=== PATIENT | female | born 2000 | race Caucasian/White ===

== ENCOUNTER 2018-04-15 21:30 | Observation (INO) | payer OTHER ==
[2018-04-15 21:54] VITALS: BP 151/78
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
[2018-04-16] MEDS ORDERED: hydrOXYzine Pamoate 25 MG Cap PO ONE (01:05)
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
== END 2018-04-16 01:26 | disposition home or self-care (01) ==
LOC: MW.ED 21:30 → MW.OB 22:27
PROVIDERS: ADMIT Obstetrics & Gynecology; ATTEND Obstetrics & Gynecology
DX: Z04.1 Encounter for examination and observation following transport accident (principal); O99.513 Diseases of the respiratory system complicating pregnancy, third trimester; J45.909 Unspecified asthma, uncomplicated; Z3A.37 37 weeks gestation of pregnancy
CPT/HCPCS: 59025; 76818; 76818-26; 93005; 99284-25; A9270-GY; G0390

== ENCOUNTER 2018-11-25 00:51 | Emergency (ER) | payer MEDICAID, OTHER ==
[2018-11-25] MEDS ORDERED: Ondansetron 4 MG/2 ML SDV IVPUSH ONE (01:07)
[2018-11-25] MEDS ORDERED: Pantoprazole 40 MG Vial IVPUSH ONE (01:07)
[2018-11-25] MEDS ORDERED: Sodium Chloride 0.9% 1,000 ML IV ONE (01:07)
[2018-11-25] MEDS ORDERED: Sodium Chloride 0.9% 2.5 ML Syringe FLUSH PRN (01:07)
[2018-11-25] MEDS ORDERED: Sodium Chloride 0.9% 10 ML Syringe FLUSH PRN (01:07)
[2018-11-25] MEDS ORDERED: Sodium Chloride 0.9% 20 ML ONE (01:11)
--- NOTE | 2018-11-25 01:11 | EDM.PDOC ---
ED HPI GENERAL MEDICAL PROBLEM - General Chief Complaint: Abdominal Pain Stated Complaint: UPPER ABD PAIN Time Seen by Provider: 11/25/18 00:57 - History of Present Illness INITIAL COMMENTS - FREE TEXT/NARRATIVE: HISTORY AND PHYSICAL: History of present illness: The patient is a 18-year-old female with no abdominal surgical history and no GI history, who has had an endoscopy and gallbladder ultrasound about 5 years ago and was told that she had acid reflux and was treated and is since off medications and presents with onset of epigastric pain that started 2 hours ago. The patient says she is nauseated but not vomiting and feels lightheaded but she has no chest pain or shortness of breath no fevers chills or upper respiratory symptoms. She said she had a normal bowel movement just prior to coming here which was not black or bloody and no diarrhea. She says that foods don't bother her stomach and she doesn't have issues with food intolerance but she did try some [id number] Tums and it did not work so she came here for evaluation. The patient denies but she is not on control and she has no urinary complaints or flank pain. The patient tells me that the pain is localized in the epigastrium and does not go right or left there is no lower abdominal or pelvic tenderness. The patient is currently breast-feeding her child but does have breast home so she can pump and discard for any medications that are given here. She describes the pain as a cramping-like contraction-like feeling that does not let up. She says it is like squeezing. Review of systems: As per history of present illness and below otherwise all systems reviewed and negative. Past medical history: As per history of present illness and as reviewed below otherwise noncontributory. Surgical history: As per history of present illness and as reviewed below otherwise noncontributory. Social history: No reported history of drug or alcohol abuse. Family history: As per history of present illness and as reviewed below otherwise noncontributory. Physical exam: General: Well-developed well-nourished mildly overweight female who is nontoxic and vital signs are noted by me HEENT: Atraumatic, normocephalic, negative for conjunctival pallor or scleral icterus, mucous membranes moist, throat clear, neck supple, nontender, trachea midline. Lungs: Clear to auscultation, breath sounds equal bilaterally, chest nontender. Heart: S1S2, regular rate and rhythm no overt murmurs Abdomen: Soft, nondistended, no sounds are normoactive, there is some mild epigastric tenderness on deep palpation without rebound or guarding but he does not localize right or left and there is no lower abdominal tenderness. Negative for masses or hepatosplenomegaly. Negative for costovertebral tenderness. Pelvis: Stable nontender. Genitourinary: Deferred. Rectal: Deferred. Extremities: Atraumatic, negative for cords or calf pain. Neurovascular unremarkable. Neuro: Awake, alert, oriented. Cranial nerves II through XII unremarkable. Cerebellum unremarkable. Motor and sensory unremarkable throughout. Exam nonfocal. Diagnostics: CBC CMP amylase lipase H. pylori UA UCG EKG Therapeutics: IV fluids Zofran and Protonix GI cocktail I discussed with the patient and family at bedside TESTING that has been done to this point and it is all within normal limits except some mild dehydration with a BUN of 20. I will give the patient a GI cocktail and I have offered her imaging, a CT scan, which she declines at this time. I have talked with her at length about further testing going forward such as possible repeat endoscopy HIDA scan and further care with Dr. Calderón whom she has seen in the past or one of his associates. She states understanding. I will give her prescription for Protonix and Carafate to take for the next 10 days and reevaluate. I will also give her dietary restrictions Impression: Epigastric pain Definitive disposition and diagnosis as appropriate pending reevaluation and review of above. Abdominal Pain Score (Numeric/FACES): 7 - Related Data Allergies Allergy/AdvReac Type Severity Reaction Status Date / Time No Known Allergies Allergy Verified 11/25/18 00:57 Home Meds: Home Meds . [No Known Home Meds] 11/25/18 [History] Past Medical History Respiratory History: Reports: Asthma Gastrointestinal History: Reports: Chronic Constipation Other Gastrointestinal History: occasional heartburn - Infectious Disease History Infectious Disease History: Reports: Chicken Pox - Past Surgical History Head Surgeries/Procedures: Reports: None HEENT Surgical History: Reports: Other (See Below) Other HEENT Surgeries/Procedures: wisdom tooth extraction 03/2017 GI Surgical History: Reports: Colonoscopy, Other (See Below) Other GI Surgeries/Procedures: colonoscopy with endoscopy 11/2015 Social & Family History - Family History Family Medical History: Noncontributory - Tobacco Use Smoking Status *Q: Never Smoker - Caffeine Use Caffeine Use: Reports: None - Recreational Drug Use Recreational Drug Use: No ED ROS GENERAL - Review of Systems Review Of Systems: ROS reveals no pertinent complaints other than HPI. ED EXAM, GENERAL - Physical Exam Exam: See Below (See dictation) Course - Vital Signs Last Recorded V/S: Last Vital Signs Temp 35.9 C 11/25/18 00:58 Pulse 79 11/25/18 00:58 Resp 16 11/25/18 00:58 BP 143/86 H 11/25/18 00:58 Pulse Ox 99 11/25/18 00:58 - Orders/Labs/Meds Orders: Active Orders 24 hr Category Date Time Status EKG Documentation Completion [RC] STAT Care 11/25/18 02:03 Active Sodium Chloride 0.9% [Saline Flush] Med 11/25/18 01:07 Active 10 ml FLUSH ASDIRECTED PRN Sodium Chloride 0.9% [Saline Flush] Med 11/25/18 01:07 Active 2.5 ml FLUSH ASDIRECTED PRN Saline Lock Insert [OM.PC] Stat Oth 11/25/18 01:07 Ordered Medication Orders Sodium Chloride (Saline Flush) 10 ml FLUSH ASDIRECTED PRN PRN Reason: Keep Vein Open Sodium Chloride (Saline Flush) 2.5 ml FLUSH ASDIRECTED PRN PRN Reason: Keep Vein Open Labs: Laboratory Tests 11/25/18 11/25/18 11/25/18 Range/Units 01:00 01:00 01:15 WBC 9.49 (4.0-11.0) K/uL RBC 5.19 (4.30-5.90) M/uL Hgb 14.8 (12.0-16.0) g/dL Hct 43.7 (36.0-46.0) % MCV 84.2 (80.0-98.0) fL MCH 28.5 (27.0-32.0) pg MCHC 33.9 (31.0-37.0) g/dL RDW Std Deviation 38.3 (28.0-62.0) fl RDW Coeff of Latasha 13 (11.0-15.0) % Plt Count 192 (150-400) K/uL MPV 12.70 H (7.40-12.00) fL Neut % (Auto) 64.4 (48.0-80.0) % Lymph % (Auto) 28.2 (16.0-40.0) % Jerome % (Auto) 6.4 (0.0-15.0) % Eos % (Auto) 0.8 (0.0-7.0) % Baso % (Auto) 0.2 (0.0-1.5) % Neut # (Auto) 6.1 H (1.4-5.7) K/uL Lymph # (Auto) 2.7 H (0.6-2.4) K/uL Jerome # (Auto) 0.6 (0.0-0.8) K/uL Eos # (Auto) 0.1 (0.0-0.7) K/uL Baso # (Auto) 0.0 (0.0-0.1) K/uL Nucleated RBC % 0.0 /100WBC Nucleated RBCs # 0 K/uL Sodium (136-145) mmol/L Potassium (3.5-5.1) mmol/L Chloride (98-107) mmol/L Carbon Dioxide (21.0-32.0) mmol/L BUN (7.0-18.0) mg/dL Creatinine (0.6-1.0) mg/dL Est Cr Clr Drug Dosing mL/min Estimated GFR (MDRD) ml/min Glucose (74-106) mg/dL Calcium (8.5-10.1) mg/dL Total Bilirubin (0.2-1.0) mg/dL AST (15-37) IU/L ALT (14-63) IU/L Alkaline Phosphatase (46-116) U/L Total Protein (6.4-8.2) g/dL Albumin (3.4-5.0) g/dL Globulin (2.6-4.0) g/dL Albumin/Globulin Ratio (0.9-1.6) Amylase (25-115) U/L Lipase (73-393) U/L Urine Color YELLOW Urine Appearance CLEAR Urine pH 6.5 (5.0-8.0) Ur Specific [place] 1.020 (1.001-1.035) Urine Protein NEGATIVE (NEGATIVE) mg/dL Urine Glucose (UA) NEGATIVE (NEGATIVE) mg/dL Urine Ketones TRACE H (NEGATIVE) mg/dL Urine Occult Blood NEGATIVE (NEGATIVE) Urine Nitrite NEGATIVE (NEGATIVE) Urine Bilirubin NEGATIVE (NEGATIVE) Urine Urobilinogen 0.2 (<2.0) EU/dL Ur Leukocyte Esterase NEGATIVE (NEGATIVE) Urine HCG, Qual NEGATIVE (NEGATIVE) H. pylori IgG Antibody (NEG) 11/25/18 11/25/18 Range/Units 01:15 01:15 WBC (4.0-11.0) K/uL RBC (4.30-5.90) M/uL Hgb (12.0-16.0) g/dL Hct (36.0-46.0) % MCV (80.0-98.0) fL MCH (27.0-32.0) pg MCHC (31.0-37.0) g/dL RDW Std Deviation (28.0-62.0) fl RDW Coeff of Latasha (11.0-15.0) % Plt Count (150-400) K/uL MPV (7.40-12.00) fL Neut % (Auto) (48.0-80.0) % Lymph % (Auto) (16.0-40.0) % Jerome % (Auto) (0.0-15.0) % Eos % (Auto) (0.0-7.0) % Baso % (Auto) (0.0-1.5) % Neut # (Auto) (1.4-5.7) K/uL Lymph # (Auto) (0.6-2.4) K/uL Jerome # (Auto) (0.0-0.8) K/uL Eos # (Auto) (0.0-0.7) K/uL Baso # (Auto) (0.0-0.1) K/uL Nucleated RBC % /100WBC Nucleated RBCs # K/uL Sodium 143 (136-145) mmol/L Potassium 3.8 (3.5-5.1) mmol/L Chloride 101 (98-107) mmol/L Carbon Dioxide 27.6 (21.0-32.0) mmol/L BUN 21 H (7.0-18.0) mg/dL Creatinine 0.9 (0.6-1.0) mg/dL Est Cr Clr Drug Dosing 86.10 mL/min Estimated GFR (MDRD) > 60.0 ml/min Glucose 123 H (74-106) mg/dL Calcium 9.3 (8.5-10.1) mg/dL Total Bilirubin 0.3 (0.2-1.0) mg/dL AST 19 (15-37) IU/L ALT 20 (14-63) IU/L Alkaline Phosphatase 149 H (46-116) U/L Total Protein 7.8 (6.4-8.2) g/dL Albumin 4.4 (3.4-5.0) g/dL Globulin 3.4 (2.6-4.0) g/dL Albumin/Globulin Ratio 1.3 (0.9-1.6) Amylase 53 (25-115) U/L Lipase 186 (73-393) U/L Urine Color Urine Appearance Urine pH (5.0-8.0) Ur Specific [place] (1.001-1.035) Urine Protein (NEGATIVE) mg/dL Urine Glucose (UA) (NEGATIVE) mg/dL Urine Ketones (NEGATIVE) mg/dL Urine Occult Blood (NEGATIVE) Urine Nitrite (NEGATIVE) Urine Bilirubin (NEGATIVE) Urine Urobilinogen (<2.0) EU/dL Ur Leukocyte Esterase (NEGATIVE) Urine HCG, Qual (NEGATIVE) H. pylori IgG Antibody NEGATIVE (NEG) Meds: Medications Generic Name Dose Route Start Last Admin Trade Name Ry PRN Reason Stop Dose Admin Sodium Chloride 10 ml 11/25/18 01:07 Saline Flush FLUSH ASDIRECTED PRN Keep Vein Open Sodium Chloride 2.5 ml 11/25/18 01:07 Saline Flush FLUSH ASDIRECTED PRN Keep Vein Open Discontinued Medications Generic Name Dose Route Start Last Admin Trade Name Ry PRN Reason Stop Dose Admin Al Hydroxide/Mg Hydroxide 15 0 ml 11/25/18 02:01 11/25/18 02:07 ml/ Metoclopramide HCl 5 mg/ PO 11/25/18 02:02 25 each Lidocaine HCl 5 ml ONETIME ONE Administration Sodium Chloride 1,000 mls @ 999 mls/hr 11/25/18 01:07 11/25/18 01:20 Normal Saline IV 11/25/18 02:07 999 mls/hr STAT ONE Administration Sodium Chloride Confirm 11/25/18 01:11 11/25/18 01:20 Normal Saline Administered 11/25/18 01:12 20 mls/hr Dose Administration 20 mls @ as directed .ROUTE .STK-MED ONE Ondansetron HCl 4 mg 11/25/18 01:07 11/25/18 01:20 Zofran IVPUSH 11/25/18 01:08 4 mg ONETIME ONE Administration Pantoprazole Sodium 80 mg 11/25/18 01:07 11/25/18 01:23 Protonix Iv IVPUSH 11/25/18 01:08 80 mg .BOLUS ONE Administration Sodium Chloride 20 ml 11/25/18 01:32 11/25/18 01:33 Normal Saline FLUSH 11/25/18 01:33 Not Given NOW STA Departure - Departure Time of Disposition: 02:16 Disposition: Home, Self-Care 01 Condition: Good Clinical Impression: Epigastric abdominal pain - Discharge Information Referrals: PCP,None [Primary Care Provider] - Forms: ED Department Discharge Additional Instructions: The following information is given to patients seen in the emergency department who are being discharged to home. This information is to outline your options for follow-up care. We provide all patients seen in our emergency department with a follow-up referral. The need for follow-up, as well as the timing and circumstances, are variable depending upon the specifics of your emergency department visit. If you don't have a primary care physician on staff, we will provide you with a referral. We always advise you to contact your personal physician following an emergency department visit to inform them of the circumstance of the visit and for follow-up with them and/or the need for any referrals to a consulting specialist. The emergency department will also refer you to a specialist when appropriate. This referral assures that you have the opportunity for followup care with a specialist. All of these measure are taken in an effort to provide you with optimal care, which includes your followup. Under all circumstances we always encourage you to contact your private physician who remains a resource for coordinating your care. When calling for followup care, please make the office aware that this follow-up is from your recent emergency room visit. If for any reason you are refused follow-up, please contact the [facility] emergency department at and ask to speak to the emergency department charge nurse. [facility] [address] [place] [phone] Please connect with the clinic and schedule follow-up as we discussed for further testing and care of this problem. Take medications as prescribed and try to avoid caffeinated products spicy foods and eat a low-fat diet keeping in mind that any fat may trigger discomfort including cheeses of a and other sources of good fat. Push hydration and return to ER as needed and as discussed - My Orders Last 24 Hours: My Active Orders 11/25/18 01:07 Sodium Chloride 0.9% [Saline Flush] 10 ml FLUSH ASDIRECTED PRN Sodium Chloride 0.9% [Saline Flush] 2.5 ml FLUSH ASDIRECTED PRN Saline Lock Insert [OM.PC] Stat 11/25/18 02:03 EKG Documentation Completion [RC] STAT - Assessment/Plan Last 24 Hours: My Active Orders 11/25/18 01:07 Sodium Chloride 0.9% [Saline Flush] 10 ml FLUSH ASDIRECTED PRN Sodium Chloride 0.9% [Saline Flush] 2.5 ml FLUSH ASDIRECTED PRN Saline Lock Insert [OM.PC] Stat 11/25/18 02:03 EKG Documentation Completion [RC] STAT
[2018-11-25] MEDS ORDERED: Sodium Chloride 0.9% 20 ML SDV FLUSH STA (01:32)
[2018-11-25 01:42] LABS: CHLORIDE,CL 101 mmol/L (98-107); SODIUM,NA 143 mmol/L (136-145)
[2018-11-25] MEDS ORDERED: Alum Hydrox/Mag Hydrox/Simeth 15 ML, Metoclopramide 5 MG, Lidocaine 2% 5 ML PO ONE ×3 (02:01)
[2018-11-25 02:32] VITALS: BP 126/76
== END 2018-11-25 02:25 | disposition home or self-care (01) ==
LOC: MW.ED 00:51
DX: R10.13 Epigastric pain (principal)
CPT/HCPCS: 80053; 81003; 81025; 82150; 83690; 85025; 86677; 93005; 96361; 96374; 96375; 99284; A9270; C9113; J2405; J7040

== ENCOUNTER 2018-11-25 03:37 | Emergency (ER) | payer OTHER ==
[2018-11-25 03:46] VITALS: BP 138/75
[2018-11-25] MEDS ORDERED: Ondansetron 4 MG/2 ML SDV IVPUSH ONE (03:49)
[2018-11-25] MEDS ORDERED: Sodium Chloride 0.9% 1,000 ML IV ONE (03:49)
[2018-11-25] MEDS ORDERED: Morphine 2 MG/ML Syringe IVPUSH ONE (03:49)
--- NOTE | 2018-11-25 03:53 | EDM.PDOC ---
ED HPI GENERAL MEDICAL PROBLEM - General Chief Complaint: Abdominal Pain Stated Complaint: ABD PAIN AND VOMITING Time Seen by Provider: 11/25/18 03:46 - History of Present Illness INITIAL COMMENTS - FREE TEXT/NARRATIVE: HISTORY AND PHYSICAL: History of present illness: The patient is a 18-year-old female who I just saw here in the emergency department and was discharged home about an hour and a half ago and represented with worsening of her pain. On her initial presentation she had 2 hours of epigastric pain that felt like a squeezing cramping like sensation without radiation and was associated with nausea but no vomiting or diarrhea. She has no significant GI or surgical history except for acid reflux that she was diagnosed with back about 5 years ago for which she was treated and taken off medications. On my initial evaluation she had blood work performed which all of which was negative and she was offered a CT scan and she declined at that time. She was given Zofran Protonix for GI cocktail and IV fluids. Upon discharge she was given Protonix for home as well as omeprazole and Zofran and it was recommended that she follow-up with our surgery clinic where she has established relationship for possible EGD and further gallbladder testing. She was comfortable with this care plan and went home and now represented saying that the pain is worsened and now it is still in the epigastric area but now more in the right upper quadrant and she has vomited 2 times. She says the vomitus is food and clear but is not black or bloody and there is no bile. She says the pain is intensified and now it is moving to her back. She has no shortness of breath no chest pain no fevers or flank pain. Review of systems: As per history of present illness and below otherwise all systems reviewed and negative. Past medical history: As per history of present illness and as reviewed below otherwise noncontributory. Surgical history: As per history of present illness and as reviewed below otherwise noncontributory. Social history: No reported history of drug or alcohol abuse. Family history: As per history of present illness and as reviewed below otherwise noncontributory. Physical exam: General: Well-developed well-nourished mildly overweight female who is nontoxic and looks more comfortable than her previous ED visit. Vital signs are noted by me HEENT: Atraumatic, normocephalic, pupils reactive, negative for conjunctival pallor or scleral icterus, mucous membranes moist, throat clear, neck supple, nontender, trachea midline. Lungs: Clear to auscultation, breath sounds equal bilaterally, chest nontender. Heart: S1S2, regular rate and rhythm no overt murmurs. Abdomen: Soft, nondistended, mild to moderate tenderness in the epigastrium and right upper quadrant without rebound or guarding and bowel sounds are slightly hypoactive Negative for masses or hepatosplenomegaly. Negative for costovertebral tenderness. Pelvis: Stable nontender. Genitourinary: Deferred. Rectal: Deferred. Extremities: Atraumatic, full range of motion without defects or deficits. Neurovascular unremarkable. Neuro: Awake, alert, oriented. Cranial nerves II through XII unremarkable. Cerebellum unremarkable. Motor and sensory unremarkable throughout. Exam nonfocal. Diagnostics: Labs from earlier were reviewed by me and repeat CBC and CMP was REordered to identify any acute changes , lactate, as well as CT scan of the abdomen and pelvis Therapeutics: IV placement IV fluids morphine Reglan Benadryl Zofran Ophiem 7.5 Patient on her prior ED visit had already received Protonix Patient has returned from CT and I discussed with her the lab tests. We are currently waiting the CT scan results. She says that her pain has gone from a 9 to a 2/10 and her nausea is improved but it is not completely gone. I will give her some Reglan Benadryl and then reevaluate. Discussed CT scan results with the patient which indicate cholelithiasis without signs of cholecystitis. The patient did present in a very colic fashion on the second ER visit. She now admits to me that in her BLT sandwich today she did have avocado along with the trimble. I've advised her on eating a low-fat diet and connecting with our surgery clinic next week to schedule cholecystectomy. I will give her one Ophiem here and a prescription for home as she would like to prescription at her local pharmacy rather than [facility]. Impression: Epigastric/right upper quadrant pain, cholelithiasis with biliary colic Definitive disposition and diagnosis as appropriate pending reevaluation and review of above. Upper Abdomen Pain Score (Numeric/FACES): 9 - Related Data Allergies Allergy/AdvReac Type Severity Reaction Status Date / Time No Known Allergies Allergy Verified 11/25/18 03:45 Home Meds: Home Meds . [No Known Home Meds] 11/25/18 [History] Past Medical History - Past Health History Medical/Surgical History: Denies Medical/Surgical History Respiratory History: Reports: Asthma Gastrointestinal History: Reports: Chronic Constipation Other Gastrointestinal History: occasional heartburn - Infectious Disease History Infectious Disease History: Reports: Chicken Pox - Past Surgical History Head Surgeries/Procedures: Reports: None HEENT Surgical History: Reports: Other (See Below) Other HEENT Surgeries/Procedures: wisdom tooth extraction 03/2017 GI Surgical History: Reports: Colonoscopy, Other (See Below) Other GI Surgeries/Procedures: colonoscopy with endoscopy 11/2015 Social & Family History - Family History Family Medical History: Noncontributory - Tobacco Use Smoking Status *Q: Never Smoker Second Hand Smoke Exposure: No - Caffeine Use Caffeine Use: Reports: None - Recreational Drug Use Recreational Drug Use: No ED ROS GENERAL - Review of Systems Review Of Systems: ROS reveals no pertinent complaints other than HPI. ED EXAM, GENERAL - Physical Exam Exam: See Below (See dictation) Course - Vital Signs Last Recorded V/S: Last Vital Signs Temp 35.9 C 11/25/18 03:39 Pulse 77 11/25/18 03:39 Resp 18 11/25/18 03:39 BP 138/75 11/25/18 03:39 Pulse Ox 97 11/25/18 03:39 - Orders/Labs/Meds Orders: Active Orders 24 hr Category Date Time Status Abdomen Pelvis w Cont [CT] Stat Exams 11/25/18 03:49 Taken Sodium Chloride 0.9% [Normal Saline] 1,000 ml Med 11/25/18 03:49 Active IV STAT Medication Orders Sodium Chloride (Normal Saline) 1,000 mls @ 999 mls/hr IV STAT ONE Stop: 11/25/18 04:49 Last Admin: 11/25/18 04:00 Dose: 999 mls/hr Labs: Laboratory Tests 11/25/18 11/25/18 11/25/18 Range/Units 03:50 03:50 03:50 WBC 9.66 (4.0-11.0) K/uL RBC 4.99 (4.30-5.90) M/uL Hgb 14.3 (12.0-16.0) g/dL Hct 42.2 (36.0-46.0) % MCV 84.6 (80.0-98.0) fL MCH 28.7 (27.0-32.0) pg MCHC 33.9 (31.0-37.0) g/dL RDW Std Deviation 38.5 (28.0-62.0) fl RDW Coeff of Latasha 13 (11.0-15.0) % Plt Count 162 (150-400) K/uL MPV 12.70 H (7.40-12.00) fL Neut % (Auto) 64.8 (48.0-80.0) % Lymph % (Auto) 29.1 (16.0-40.0) % [place] % (Auto) 5.8 (0.0-15.0) % Eos % (Auto) 0.2 (0.0-7.0) % Baso % (Auto) 0.1 (0.0-1.5) % Neut # (Auto) 6.3 H (1.4-5.7) K/uL Lymph # (Auto) 2.8 H (0.6-2.4) K/uL Dim[place] # (Auto) 0.6 (0.0-0.8) K/uL Eos # (Auto) 0.0 (0.0-0.7) K/uL Baso # (Auto) 0.0 (0.0-0.1) K/uL Nucleated RBC % 0.0 /100WBC Nucleated RBCs # 0 K/uL Lactate 1.8 (0.20-2.00) mmol/L Sodium 145 (136-145) mmol/L Potassium 4.3 (3.5-5.1) mmol/L Chloride 107 (98-107) mmol/L Carbon Dioxide 26.2 (21.0-32.0) mmol/L BUN 19 H (7.0-18.0) mg/dL Creatinine 0.9 (0.6-1.0) mg/dL Est Cr Clr Drug Dosing 86.10 mL/min Estimated GFR (MDRD) > 60.0 ml/min Glucose 114 H (74-106) mg/dL Calcium 9.5 (8.5-10.1) mg/dL Total Bilirubin 0.4 (0.2-1.0) mg/dL AST 136 H (15-37) IU/L ALT 67 H (14-63) IU/L Alkaline Phosphatase 139 H (46-116) U/L Total Protein 7.4 (6.4-8.2) g/dL Albumin 4.2 (3.4-5.0) g/dL Globulin 3.2 (2.6-4.0) g/dL Albumin/Globulin Ratio 1.3 (0.9-1.6) Meds: Medications Generic Name Dose Route Start Last Admin Trade Name Freq PRN Reason Stop Dose Admin Sodium Chloride 1,000 mls @ 999 mls/hr 11/25/18 03:49 11/25/18 04:00 Normal Saline IV 11/25/18 04:49 999 mls/hr STAT ONE Administration Discontinued Medications Generic Name Dose Route Start Last Admin Trade Name Freq PRN Reason Stop Dose Admin Diphenhydramine HCl 25 mg 11/25/18 04:27 11/25/18 04:32 Benadryl IVPUSH 11/25/18 04:28 25 mg ONETIME ONE Administration Iopamidol 100 ml 11/25/18 03:58 11/25/18 04:13 Isovue-370 (76%) IVPUSH 11/25/18 03:59 100 ml ONETIME ONE Administration Metoclopramide HCl 10 mg 11/25/18 04:27 11/25/18 04:32 Reglan IV 11/25/18 04:28 10 mg ONETIME ONE Administration Morphine Sulfate 4 mg 11/25/18 03:49 11/25/18 04:00 Morphine IVPUSH 11/25/18 03:50 4 mg ONETIME ONE Administration Ondansetron HCl 4 mg 11/25/18 03:49 11/25/18 04:00 Zofran IVPUSH 11/25/18 03:50 4 mg ONETIME ONE Administration Departure - Departure Time of Disposition: 04:44 Disposition: Home, Self-Care 01 Condition: Good Clinical Impression: Biliary colic Cholelithiasis Qualifiers: Cholelithiasis location: gallbladder Cholecystitis presence: without cholecystitis Biliary obstruction: without biliary obstruction Qualified Code(s) : K80.20 - Calculus of gallbladder without cholecystitis without obstruction - Discharge Information Referrals: PCP,None [Primary Care Provider] - Forms: ED Department Discharge Additional Instructions: The following information is given to patients seen in the emergency department who are being discharged to home. This information is to outline your options for follow-up care. We provide all patients seen in our emergency department with a follow-up referral. The need for follow-up, as well as the timing and circumstances, are variable depending upon the specifics of your emergency department visit. If you don't have a primary care physician on staff, we will provide you with a referral. We always advise you to contact your personal physician following an emergency department visit to inform them of the circumstance of the visit and for follow-up with them and/or the need for any referrals to a consulting specialist. The emergency department will also refer you to a specialist when appropriate. This referral assures that you have the opportunity for followup care with a specialist. All of these measure are taken in an effort to provide you with optimal care, which includes your followup. Under all circumstances we always encourage you to contact your private physician who remains a resource for coordinating your care. When calling for followup care, please make the office aware that this follow-up is from your recent emergency room visit. If for any reason you are refused follow-up, please contact the emergency department at and ask to speak to the emergency department charge nurse. [facility] Professional [facility] [address] [place] [address] Fill your prescription for the Zofran that you have given earlier and you may also told the prescription for the Protonix and the omeprazole as you choose. You have been given a prescription for Ophiem which is a narcotic pain medication and use this only when the pain gets severe. You may use over-the- counter Tylenol and ibuprofen otherwise for pain management. Please eat a low- fat diet as we discussed avoiding even good fats as this will trigger your pain. Also reduce and/or eliminate caffeine. Push hydration and schedule follow- up in the surgery clinic using resources given to above discussed laparoscopic cholecystectomy and other treatment plans for your symptoms. - My Orders Last 24 Hours: My Active Orders 11/25/18 03:49 Abdomen Pelvis w Cont [CT] Stat Sodium Chloride 0.9% [Normal Saline] 1,000 ml IV STAT - Assessment/Plan Last 24 Hours: My Active Orders 11/25/18 03:49 Abdomen Pelvis w Cont [CT] Stat Sodium Chloride 0.9% [Normal Saline] 1,000 ml IV STAT
[2018-11-25] MEDS ORDERED: Iopamidol 755 Mg/ML 100 ML Bottle IVPUSH ONE (03:58)
[2018-11-25 04:17] LABS: CHLORIDE,CL 107 mmol/L (98-107); SODIUM,NA 145 mmol/L (136-145)
[2018-11-25] MEDS ORDERED: diphenhydrAMINE 50 MG/ML SDV IVPUSH ONE (04:27)
[2018-11-25] MEDS ORDERED: Metoclopramide 10 MG/2 ML SDV IV ONE (04:27)
[2018-11-25] MEDS ORDERED: Acetaminophen/HYDROcodone 325-7.5 MG Tab PO ONE (04:47)
--- NOTE | 2018-11-27 17:46 | CT ---
EXAM DATE: 11/25/18 PATIENT'S AGE: 18 Patient: OSWALD VALLECILLO Facility: [facility] : 2000 Study: CT-Abdomen/Pelvis -11/25/2018 4:26:12 AM Ordering Physician: neeru Final Report: INDICATION: Abdominal pain TECHNIQUE: CT abdomen and pelvis acquired with 100 cc Isovue 370 intravenous contrast. COMPARISON: None. FINDINGS: Lower chest: Unremarkable. Liver: Unremarkable. Normal in size and attenuation. No masses. Gallbladder and bile ducts: Minimal intrahepatic biliary dilatation with note made of cholelithiasis. No pericholecystic inflammation. Common duct normal in caliber. Pancreas: Unremarkable. No mass or inflammation. Spleen: Unremarkable. Normal in size. No masses. Adrenal glands: Unremarkable. No nodules. Kidneys: Unremarkable. No masses, stones, or hydronephrosis. GI tract: The stomach is unremarkable. There are no dilated loops of large or small intestine. The appendix is seen and is unremarkable. Vasculature: Unremarkable. Pelvis: Unremarkable. Bones: Unremarkable for age. IMPRESSION: 1. Cholelithiasis with minimal intrahepatic biliary dilatation noted without CT evidence of cholecystitis. 2. Remainder of the abdomen and pelvis CT is unremarkable. Please note that all CT scans at this facility use dose modulation, iterative reconstruction, and/or weight-based dosing when appropriate to reduce radiation dose to as low as reasonably achievable. Dictated by Prince Aden MD @ Nov 25 2018 4:28AM Signed by: Prince Aden MD @11/25/2018 4:36:13 AM (Electronic Signature) Report Signed by Proxy. [facility]
== END 2018-11-25 05:04 | disposition home or self-care (01) ==
LOC: MW.ED 03:37
DX: K80.70 Calculus of gallbladder and bile duct without cholecystitis without obstruction (principal)
CPT/HCPCS: 36415; 74177; 80053; 83605; 85025; 96361; 96374; 96375; 99284; A9270; J1200; J2270; J2405; J2765; J7040; Q9967

== ENCOUNTER 2018-12-08 06:32 | Day surgery (SDC) | payer OTHER ==
[~2018-12-08 06:32] MED LIST: Lactated Ringers 1,000 ML IV SCH; cefOXitin 2 GM in Premix Bag 1 BAG IV ONE
[2018-12-08] MEDS ORDERED: ceFAZolin 1 GM Vial ONE ×2 (07:14→07:47)
[2018-12-08] MEDS ORDERED: Bupivacaine 0.5% 30 ML SDV ONE (07:14)
[2018-12-08] MEDS ORDERED: Scopolamine 1.5 MG Transdermal Patch TRDERM PRN (07:18)
--- NOTE | 2018-12-08 07:18 | PCM.PREANE ---
Preanesthetic Assessment - Anesthesia/Transfusion/Family Hx Anesthesia History: Prior Anesthesia Without Reaction (endoscopy) Family History of Anesthesia Reaction: No Transfusion History: No Prior Transfusion(s) - Review of Systems General: No Symptoms Pulmonary: No Symptoms Cardiovascular: No Symptoms Gastrointestinal: No Symptoms Neurological: No Symptoms Other: Reports: None - Physical Assessment NPO Status Date: 12/07/18 O2 Sat by Pulse Oximetry: 97 Respiratory Rate: 15 Vital Signs: Last Vital Signs Temp 97.5 F 12/08/18 06:56 Pulse 85 12/08/18 06:56 Resp 15 12/08/18 06:56 BP 126/81 12/08/18 06:56 Pulse Ox 97 12/08/18 06:56 Height: 5 ft 4 in Weight: 81.647 kg ASA Class: 2 Mental Status: Alert & Oriented x3 Airway Class: Mallampati = 2 Dentition: Reports: Normal Dentition, De Graff(s) (lower central incisor) ROM/Head Extension: Full Lungs: Clear to Auscultation, Normal Respiratory Effort Cardiovascular: Regular Rate, Regular Rhythm - Allergies Allergies/Adverse Reactions: Allergies Allergy/AdvReac Type Severity Reaction Status Date / Time adhesive tape Allergy Rash Verified 12/08/18 07:04 - Blood Blood Available: No - Anesthesia Plan Pre-Op Medication Ordered: None, Other (scop) - Acknowledgements Anesthesia Type Planned: General Anesthesia Pt an Appropriate Candidate for the Planned Anesthesia: Yes Alternatives and Risks of Anesthesia Discussed w Pt/Guardian: Yes Pt/Guardian Understands and Agrees with Anesthesia Plan: Yes Additional Comments: PMH: exc ind asthma. IBS-d, PLAN: get PreAnesthesia Questionnaire - Past Health History Medical/Surgical History: Denies Medical/Surgical History Respiratory History: Reports: Asthma Gastrointestinal History: Reports: Chronic Constipation Other Gastrointestinal History: occasional heartburn Genitourinary History: STRAWHAT SIZER History: Reports: Endocrine/Metabolic History: Reports: Obesity/BMI 30+ - Infectious Disease History Infectious Disease History: Reports: Chicken Pox - Past Surgical History Head Surgeries/Procedures: Reports: None HEENT Surgical History: Reports: Other (See Below) Other HEENT Surgeries/Procedures: wisdom tooth extraction 03/2017 GI Surgical History: Reports: Colonoscopy, EGD Other GI Surgeries/Procedures: colonoscopy with endoscopy 11/2015 - SUBSTANCE USE Smoking Status *Q: Never Smoker Recreational Drug Use History: No - HOME MEDS Home Medications: Home Meds . [No Known Home Meds] 11/25/18 [History] - CURRENT (IN HOUSE) MEDS Current Meds: Current Medications Lactated Ringer's (Ringers, Lactated) 1,000 mls @ 125 mls/hr IV ASDIRECTED [facility] Last Admin: 12/08/18 07:04 Dose: 125 mls/hr Discontinued Medications Cefoxitin Sodium 2 gm/ Premix 50 mls @ 100 mls/hr IV ONETIME ONE Stop: 12/08/18 06:29
[2018-12-08] MEDS ORDERED: Propofol 200 MG/20 ML SDV ONE (07:38)
[2018-12-08] MEDS ORDERED: fentaNYL 250 MCG/5 ML SDV ONE (07:38)
[2018-12-08] MEDS ORDERED: Lidocaine 2% 5 ML SDV ONE (07:41)
[2018-12-08] MEDS ORDERED: Rocuronium 100 MG/10 ML Syringe ONE (07:41)
[2018-12-08] MEDS ORDERED: Ondansetron 4 MG/2 ML SDV ONE (07:41)
[2018-12-08] MEDS ORDERED: Midazolam 1 MG/ML 2 ML SDV ONE (07:43)
[2018-12-08] MEDS ORDERED: Bupivacaine 0.5% 10 ML SDV ONE (07:47)
[2018-12-08] MEDS ORDERED: cefOXitin 1 GM Vial ONE (08:12)
[2018-12-08] MEDS ORDERED: Sodium Chloride 0.9% 20 ML ONE (08:12)
[2018-12-08] MEDS ORDERED: Glycopyrrolate 0.2 MG/ML SDV ONE ×2 (08:18→09:18)
[2018-12-08] MEDS ORDERED: 50% Dextrose in Water 50 ML Syringe IVPUSH PRN ×2 (08:33→09:30)
[2018-12-08] MEDS ORDERED: EPINEPHrine 1 MG/1 ML Amp IVPUSH PRN ×2 (08:33→09:30)
[2018-12-08] MEDS ORDERED: fentaNYL 100 MCG/2 ML SDV IVPUSH PRN ×2 (08:33→09:30)
[2018-12-08] MEDS ORDERED: Atropine 0.1 MG/ML 10 ML Syringe IVPUSH PRN (08:33)
[2018-12-08] MEDS ORDERED: Albuterol 0.083% 2.5 MG/3 ML Neb Soln NEB PRN ×2 (08:33→09:30)
[2018-12-08] MEDS ORDERED: Atropine 1 MG/ML SDV IVPUSH PRN ×3 (08:33→09:30)
[2018-12-08] MEDS ORDERED: Naloxone 0.4 MG/ML Syringe IVPUSH PRN ×2 (08:33→09:30)
[2018-12-08] MEDS ORDERED: Labetalol 100 MG/20 ML MDV ONE (08:40)
[2018-12-08] MEDS ORDERED: Dexamethasone 4 MG/ML 5 ML MDV ONE (08:52)
[2018-12-08] MEDS ORDERED: Neostigmine Methylsulfate 1 MG/ML 5 ML Syringe ONE (08:59)
[2018-12-08] MEDS ORDERED: Acetaminophen/HYDROcodone 325-5 MG Tab PO PRN ×2 (09:52→09:55)
[2018-12-08] MEDS ORDERED: Morphine 10 MG/ML Syringe IVPUSH PRN ×2 (09:52→09:55)
--- NOTE | 2018-12-08 09:55 | PCM.OPNOTE ---
- General Post-Op/Procedure Note Date of Surgery/Procedure: 12/08/18 Operative Procedure(s): Laparoscopic cholecystectomy Pre Op Diagnosis: Symptomatic cholelithiasis Post-Op Diagnosis: Same Anesthesia Technique: General ET Tube (ASA II) Primary Surgeon: Remigio Davies Extension Course Counselor: Mary Wilson Fluid Replacement, Intraop: 1,300 Output, Urine Amount: 50 EBL in mLs: 10 Condition: Good Free Text/Narrative:: DICTATION 312309 CPT CODE 24489
[2018-12-08] MEDS ORDERED: Lactated Ringers 1,000 ML IV SCH ×2 (10:00)
[2018-12-08] MEDS ORDERED: Acetaminophen 1,000 MG in Premix Bag 1 BAG IV ONE (10:10)
--- NOTE | 2018-12-08 11:34 | PCM48HPAN ---
Post Anesthesia Note - EVALUATION WITHIN 48HRS OF ANESTHETIC Vital Signs in Normal Range: Yes Patient Participated in Evaluation: Yes Respiratory Function Stable: Yes Airway Patent: Yes Cardiovascular Function Stable: Yes Hydration Status Stable: Yes Pain Control Satisfactory: Yes Nausea and Vomiting Control Satisfactory: Yes Mental Status Recovered: Yes Pulse Rate: 77 SaO2: 98 Resp Rate: 14 Blood Pressure: 109/53
--- NOTE | 2018-12-08 11:36 | PCM.POSTAN ---
POST ANESTHESIA ASSESSMENT - MENTAL STATUS Mental Status: Alert, Oriented - VITAL SIGNS Pulse Rate: 66 SaO2: 99 Resp Rate: 16 Blood Pressure: 101/56 - RESPIRATORY Respiratory Status: Respiratory Rate WNL, Airway Patent, O2 Saturation Stable - CARDIOVASCULAR CV Status: Pulse Rate WNL, Blood Pressure Stable - GASTROINTESTINAL GI Status: No Symptoms - PAIN Pain Score: 0 - POST OP HYDRATION Hydration Status: Adequate & Stable
[2018-12-08 11:43] VITALS: BP 118/65
--- NOTE | 2018-12-08 14:25 | OR ---
SURGEON: Remigio Davies M.D. DATE OF PROCEDURE: 12/08/2018 OPERATION PERFORMED: Laparoscopic cholecystectomy. PRIMARY SURGEON: Remigio Davies MD. CIGAR PACKER AND GRADER: operations administrative assistant: Nena Wilson CST, diagnostic assistant student. ANESTHESIA: General endotracheal. ASA CLASSIFICATION: II. PREOPERATIVE DIAGNOSIS: Symptomatic cholelithiasis. POSTOPERATIVE DIAGNOSIS: Symptomatic cholelithiasis. ESTIMATED BLOOD LOSS: 10 mL. INTRAOPERATIVE FLUID REPLACEMENT: 1300 mL of crystalloid. INTRAOPERATIVE URINE OUTPUT: 50 mL. DESCRIPTION OF PROCEDURE: The patient was taken to the operating room and placed on the operating table in the supine position. Time-out was called for appropriate identification of the patient and procedure. Thigh-high TEDs and sequential compression boots were placed. Following satisfactory attainment of general endotracheal anesthesia, a Preston catheter was placed in the patient's urinary bladder. The abdomen was prepped with DuraPrep solution. Sterile drapes were applied. Skin just below the umbilicus was infiltrated with 0.5% Marcaine solution. The skin incision was made and deepened through the subcutaneous tissue. The Veress needle was introduced into the peritoneal cavity. Saline drop test was positive. Carbon dioxide pneumoperitoneum was established with the release set at 13 cm of water. Once satisfactory pneumoperitoneum was established, 5 mm camera port was placed through the infraumbilical incision. The patient was now positioned with her feet down and rolled to the left. Under camera vision, 12 mm subxiphoid, 5 mm midclavicular, and 5 mm anterior axillary ports were placed. Each incision had preemptively been infiltrated with 0.5% Marcaine solution. The gallbladder was then grasped and the cholecystohepatic triangle was dissected identifying the cystic duct and cystic artery. These structures were serially hemoclipped and divided with the laparoscopic Metzenbaum scissors. The gallbladder was then dissected away from its bed using electrocautery. Once the gallbladder was amputated, this was placed in an Endopouch. The right upper quadrant was inspected for hemostasis and small bleeding sites were electrocoagulated. The right upper quadrant was irrigated with saline solution, all fluid was aspirated. Surgicel was placed into the bed of the gallbladder. The right upper quadrant was then irrigated with 250 mL of saline containing 20 mL of 0.5% Marcaine solution. That fluid was left in situ. Again, under camera vision, the 12 mm port and Endo Catch containing gallbladder were removed. Again, under camera vision, 5 mm midclavicular and anterior axillary ports were removed and finally the infraumbilical camera and port were removed. All wounds were inspected for hemostasis and small bleeding sites were electrocoagulated. With that accomplished, wounds were closed in the following fashion. The infraumbilical and subxiphoid incisions were closed in 2 layers approximating the subcutaneous tissue with 3-0 Vicryl and the skin with subcuticular 4-0 Monocryl. The anterior axillary and midclavicular ports were closed with subcuticular 4-0 Monocryl. All incisions were Steri-Stripped and dressed with sterile Tegaderm pads. Sponge, needle, and instrument counts were all correct. Prior to emergence from anesthesia, the Preston catheter was removed. Following emergence from anesthesia and extubation, the patient was taken to recovery room in stable condition. OK RICHARDSON /[id number]
== END 2018-12-08 11:40 | disposition home or self-care (01) ==
LOC: MW.SDS 06:32
PROVIDERS: ATTEND Surgery
DX: K80.10 Calculus of gallbladder with chronic cholecystitis without obstruction (principal); K21.9 Gastro-esophageal reflux disease without esophagitis; J45.909 Unspecified asthma, uncomplicated; F41.9 Anxiety disorder, unspecified; E66.9 Obesity, unspecified; Z68.30 Body mass index [BMI] 30.0-30.9, adult; Z91.048 Other nonmedicinal substance allergy status
CPT/HCPCS: 47562; 81025; 88304; A4217; A9270; J0131; J0694; J1100; J2001; J2250; J2405; J2704; J3010; J3490; J7120; J0690